=== PATIENT | female | born 1960 | race Caucasian/White ===

== ENCOUNTER 2016-12-12 11:06 | Emergency (ER) | payer OTHER ==
[2016-12-12] MEDS ORDERED: LIDOCAINE 1% MDV 20ML VIAL As Ordered ONE (12:25)
--- NOTE | 2016-12-12 12:47 | REP ---
RIGHT BUTTOCK ULTRASOUND: Real-time sonographic evaluation of the right buttock soft tissues performed at a site of swelling and redness. There does appear to be a somewhat complex fluid collection in these soft tissues measuring 4.4 x 2.1 x 2.8 cm. This may represent an abscess. Signed by Siddhartha Butler MD 12/12/2016 05:04 P
--- NOTE | 2016-12-12 13:07 | EDDOCDS ---
Physician Documentation [facility] Name: Ashley Monge Age: 56 yrs Sex: Female : 1960 Arrival Date: 12/12/2016 Time: 11:06 Bed PD Private MD: Other - Complete Info On Cds Disposition: 12/12/16 12:54 Discharged to Home/Self Care. Impression: Cutaneous abscess of buttock, Acute bronchitis. - Condition is Stable. - Discharge Instructions: Abscess, Acute Bronchitis, Incision and Drainage, Dressing Change. - Prescriptions for Doxycycline Monohydrate 100 mg Oral Tablet - take 1 tablet by ORAL route every 12 hours for 10 days; 20 tablet. Mucinex 600 mg - take 1 tablet by ORAL route 2 times per day; 30 tablet. benzonatate 200 mg Oral Capsule - take 1 capsule by ORAL route 3 times per day As needed; 30 capsule. - Medication Reconciliation, Local Pharmacy Hours, Work Release Form - 1 day form. - Follow up: [facility]; When: 2 - 3 days; Reason: Recheck today's complaints. Follow up: Emergency Department; When: As needed; Reason: Fever > 102F, Worsening of conditions. - Problem is new. - Symptoms have improved. - Notes: call to make follow up appointment Historical: - Allergies: moxifloxacin; - Home Meds: 1. oxybutynin chloride 5 mg Oral tr24 1 tab once daily 2. Spiriva with HandiHaler 18 mcg Inhl CpDv 1 cap once daily 3. Symbicort 160-4.5 mcg/actuation inhalation HFAA 2 puffs 2 times per day - PMHx: bladder spasm; Emphysema; Ebenezer's Disease; - PSHx: Tubal ligation; Tonsillectomy; Cholecystectomy; - Social history: Smoking status: Patient uses tobacco products, heavy tobacco smoker. No barriers to communication noted, The patient speaks fluent Senegalese, Speaks appropriately for age. - Family history: Not pertinent. - : The pt / caregiver states he / she is not on anticoagulants. Home medication list is obtained from the patient. - Exposure Risk Screening:: None identified. Vital Signs: 12/12 11:09 BP 147 / 77 RA Sitting (auto/reg); Pulse 88; Resp 18; Temp 99.1(O); Pulse Ox 95% on jrd R/A; Weight 99.79 kg / 220 lbs (R); Height 5 ft. 6 in. (167.64 cm) (R); Pain 10/10; 13:05 BP 131 / 64 LA Sitting (auto/lg); Pulse 81; Resp 22; Temp 98.3(O); Pulse Ox 95% on R/A; ar3 Pain 0/10; 11:09 Body Mass Index 35.51 (99.79 kg, 167.64 cm) jrd MDM: 11:46 EXTREMITY NON VASCUL LIMITED Ordered. EDMS 12:20 Financial registration complete. lg 12:20 Lidocaine 10 mg/mL (1 %) 10 ml Infiltration once; to bedside ordered. ar2 13:02 Wound Culture & GS - All Other Sources Ordered. EDMS Administered Medications: 12:26 Drug: Lidocaine 10 ml [lidocaine 10 mg/mL (1 %) injection solution (10 mL)] {Note: ml6 administered by PA.} Route: Infiltration; Signatures: Dispatcher [employer] EDMS Vijay Olea, Jt Reg Saul Fontaine PA-C PADhaval ar2 Ammy Epstein, RN RN hs1 Natalee Zaragoza,DAWIT RN js13 Andrade Beltre RN ml6 The chart was reviewed and I authenticate all verbal orders and agree with the evaluation and treatment provided.Corrections: (The following items were deleted from the chart) 11:46 11:42 Abdomen, limited+US ordered. EDMS EDMS MTDD
--- NOTE | 2016-12-12 13:07 | EDDOCDS ---
Nurse's Notes [facility] Name: Ashley Monge Age: 56 yrs Sex: Female : 1960 Arrival Date: 12/12/2016 Time: 11:06 Bed PD Private MD: Other - Complete Info On Cds Diagnosis: Cutaneous abscess of buttock;Acute bronchitis Presentation: 12/12 11:18 Presenting complaint: Patient states: I have bronchitis and a sinus infection and [facility] have the virus that is going around. I am here because I have a giant boil on my butt that they couldn't do anything about. Patient states trying to drain it at home and unsuccessful. Adult Sepsis Screening: The patient does not have new or worsening altered mentation. Patient's respiratory rate is less than 22. Systolic blood pressure is greater than 100. Patient has a qSOFA score of 0- Negative Sepsis Screen. Suicide/Homicide risk assessment- the patient denies having any suicidal and/or homicidal ideations and does not present with any other emotional, behavioral or mental health complaints. Status: Patient is not a production service manager or dependent. Transition of care: patient was not received from another setting of care. 11:18 Acuity: LUÍS Level 4 hs1 11:18 Method Of Arrival: Walkin/Carried/Asstd hs1 Triage Assessment: 11:25 General: Appears uncomfortable, Behavior is appropriate for age, cooperative. Pain: hs1 Location: buttocks Pain currently is 10 out of 10 on a pain scale. HIV screening NA for this visit Offered previously. Neurological: No deficits noted. Respiratory: Airway is patent Respiratory effort is even, unlabored, Respiratory pattern is regular, symmetrical. Derm: Skin is pink, warm & dry. normal. Historical: - Allergies: moxifloxacin; - Home Meds: 1. oxybutynin chloride 5 mg Oral tr24 1 tab once daily 2. Spiriva with HandiHaler 18 mcg Inhl CpDv 1 cap once daily 3. Symbicort 160-4.5 mcg/actuation inhalation HFAA 2 puffs 2 times per day - PMHx: bladder spasm; Emphysema; Ebenezer's Disease; - PSHx: Tubal ligation; Tonsillectomy; Cholecystectomy; - Social history: Smoking status: Patient uses tobacco products, heavy tobacco smoker. No barriers to communication noted, The patient speaks fluent Bhutanese, Speaks appropriately for age. - Family history: Not pertinent. - : The pt / caregiver states he / she is not on anticoagulants. Home medication list is obtained from the patient. - Exposure Risk Screening:: None identified. Screenin:01 Screening information is obtained from the patient. Fall risk: No risks identified. js13 Assistance ADL's: requires no assistance with activities of daily living. Abuse/DV Screen: The patient / caregiver reports he/she is: not in a situation that causes fear, pain or injury. Nutritional screening: No deficits noted. Advance Directives: There is no active DNR order. home support is adequate. Assessment: 13:01 General: Appears in no apparent distress, Behavior is appropriate for age, cooperative. js13 Pain: Location: buttocks. Neurological: Level of Consciousness is awake, alert. Respiratory: Airway is patent Respiratory effort is even, unlabored, Respiratory pattern is regular, symmetrical. Derm: Skin is pink, warm & dry. Vital Signs: 11:09 BP 147 / 77 RA Sitting (auto/reg); Pulse 88; Resp 18; Temp 99.1(O); Pulse Ox 95% on jrd R/A; Weight 99.79 kg (R); Height 5 ft. 6 in. (167.64 cm) (R); Pain 10/10; 13:05 BP 131 / 64 LA Sitting (auto/lg); Pulse 81; Resp 22; Temp 98.3(O); Pulse Ox 95% on R/A; ar3 Pain 0/10; 11:09 Body Mass Index 35.51 (99.79 kg, 167.64 cm) [facility] Vitals: 11:09 Log In Time: December 12, 2016 at 10:55. [facility] ED Course: 11:09 Patient visited by Shyam Kraft PCA. jrd 11:09 Other - Complete Info On Cds is Private Physician. jrd 11:09 Patient moved to Waiting jrd 11:11 Patient visited by Shyam Kraft PCA. jrd 11:11 Patient moved to Pre RCE jrd 11:21 Triage Initiated hs1 11:26 Patient moved to Triage 1 hs1 11:33 Saul Fontaine PA-C is PHCP. ar2 11:33 Ad Dey MD is Attending Physician. ar2 11:33 Patient visited by Saul Fontaine PA-C. ar2 11:43 Patient moved to TR1 ar3 12:06 Patient moved to Ultrasound ar3 12:11 Patient moved to TR1 ar3 12:21 Patient moved to PD2 / 27 ar3 12:25 Patient visited by Andrade Beltre RN. ml6 12:52 [facility] is Referral Physician. ar2 12:58 EXTREMITY NON VASCUL LIMITED Returned. EDMS 13:01 The patient / caregiver is instructed regarding the plan of care and ED course. js13 13:01 No IV's were initiated during this patient's visit. No procedures done that require js13 assistance. Wound care to cyst located on right gluteus riki was dressed with 4X4s. 13:03 Wound Culture & GS - All Other Sources Sent. ar3 13:05 Patient visited by Mary Zheng PCA. ar3 Administered Medications: 12:26 Drug: Lidocaine 10 ml [lidocaine 10 mg/mL (1 %) injection solution (10 mL)] {Note: ml6 administered by EVA.} Route: Infiltration; Order Results: Radiology Order: EXTREMITY NON VASCUL LIMITED Test: EXTREMITY NON VASCUL LIMITED REASON FOR EXAMINATION: right buttock r/o abscess; ; RIGHT BUTTOCK ULTRASOUND:; ; Real-time sonographic evaluation of the right buttock soft tissues performed at a; site of swelling and redness. There does appear to be a somewhat complex fluid; collection in these soft tissues measuring 4.4 x 2.1 x 2.8 cm. This may; represent an abscess.; ; ; ; Unreviewed; Outcome: 12:54 Discharge ordered by Provider. ar2 13:01 Discharge Assessment: Patient awake, alert and oriented x 3. No cognitive and/or js13 functional deficits noted. Patient verbalized understanding of disposition instructions. patient administered narcotics - no. The following High Risk Discharge criteria are identified: None. Discharged to home ambulatory. Condition: good Condition: stable. Discharge instructions given to patient, Instructed on discharge instructions, follow up and referral plans. medication usage, wound care, Demonstrated understanding of instructions, medications, Pt was receptive of discharge instructions/ teaching. Prescriptions given X 3, Work note provided to patient. No special radiology studies were completed. Property :Personal belongings accompany Pt. 13:06 Patient left the ED. js13 Signatures: Dispatcher [employer] Saul Melendez, DIANA PAEdilbertoC ar2 Andrade Beltre, RN RN ml6 Mary Zheng, SCHEDULING ADMINISTRATOR SCHEDULING ADMINISTRATOR ar3 Ammy Epstein, DAWIT RN hs1 Natalee Zaragoza RN RN js13 Shyam Kraft, SCHEDULING ADMINISTRATOR SCHEDULING ADMINISTRATOR jrd MTDD
--- NOTE | 2016-12-14 14:07 | EDDOCDS ---
Physician Documentation [facility] Name: Ashley Monge Age: 56 yrs Sex: Female : 1960 Arrival Date: 12/12/2016 Time: 11:06 Bed PD Private MD: Other - Complete Info On Cds Disposition: 12/12/16 12:54 Discharged to Home/Self Care. Impression: Cutaneous abscess of buttock, Acute bronchitis. - Condition is Stable. - Discharge Instructions: Abscess, Acute Bronchitis, Incision and Drainage, Dressing Change. - Prescriptions for Doxycycline Monohydrate 100 mg Oral Tablet - take 1 tablet by ORAL route every 12 hours for 10 days; 20 tablet. Mucinex 600 mg - take 1 tablet by ORAL route 2 times per day; 30 tablet. benzonatate 200 mg Oral Capsule - take 1 capsule by ORAL route 3 times per day As needed; 30 capsule. - Medication Reconciliation, Local Pharmacy Hours, Work Release Form - 1 day form. - Follow up: [facility] [place]; When: 2 - 3 days; Reason: Recheck today's complaints. Follow up: Emergency Department; When: As needed; Reason: Fever > 102F, Worsening of conditions. - Problem is new. - Symptoms have improved. - Notes: call to make follow up appointment Historical: - Allergies: moxifloxacin; - Home Meds: 1. oxybutynin chloride 5 mg Oral tr24 1 tab once daily 2. Spiriva with HandiHaler 18 mcg Inhl CpDv 1 cap once daily 3. Symbicort 160-4.5 mcg/actuation inhalation HFAA 2 puffs 2 times per day - PMHx: bladder spasm; Emphysema; Ebenezer's Disease; - PSHx: Tubal ligation; Tonsillectomy; Cholecystectomy; - Social history: Smoking status: Patient uses tobacco products, heavy tobacco smoker. No barriers to communication noted, The patient speaks fluent Kosovan, Speaks appropriately for age. - Family history: Not pertinent. - : The pt / caregiver states he / she is not on anticoagulants. Home medication list is obtained from the patient. - Exposure Risk Screening:: None identified. Vital Signs: 12/12 11:09 BP 147 / 77 RA Sitting (auto/reg); Pulse 88; Resp 18; Temp 99.1(O); Pulse Ox 95% on jrd R/A; Weight 99.79 kg / 220 lbs (R); Height 5 ft. 6 in. (167.64 cm) (R); Pain 10/10; 13:05 BP 131 / 64 LA Sitting (auto/lg); Pulse 81; Resp 22; Temp 98.3(O); Pulse Ox 95% on R/A; ar3 Pain 0/10; 11:09 Body Mass Index 35.51 (99.79 kg, 167.64 cm) jrd MDM: 11:46 EXTREMITY NON VASCUL LIMITED Ordered. EDMS 12:20 Financial registration complete. lg 12:20 Lidocaine 10 mg/mL (1 %) 10 ml Infiltration once; to bedside ordered. ar2 13:02 Wound Culture & GS - All Other Sources Ordered. EDMS 13:10 [facility] [place] Agreement was scanned into [employer] and attached to record. lg 12/13 09:45 T-Sheet-- Draft Copy was scanned into [employer] and attached to record. gb 09:45 Radiology Report was scanned into [employer] and attached to record. gb Administered Medications: 12/12 12:26 Drug: Lidocaine 10 ml [lidocaine 10 mg/mL (1 %) injection solution (10 mL)] {Note: ml6 administered by PA.} Route: Infiltration; Signatures: Dispatcher [employer] EDMS Kelli Morrison, Reg Reg Vijay Stone, Reg Reg lg Saul Fontaine, PA-C PA-C ar2 Ammy Epstein RN RN hs1 Natalee Zaragoza RN RN js13 Andrade Beltre RN ml6 The chart was reviewed and I authenticate all verbal orders and agree with the evaluation and treatment provided.Corrections: (The following items were deleted from the chart) 11:46 11:42 Abdomen, limited+US ordered. EDMS EDMS Attachments: 13:10 [facility] Agreement lg 12/13 09:45 T-Sheet-- Draft Copy gb Chart Complete MTDD
--- NOTE | 2016-12-14 14:07 | EDDOCDS ---
Nurse's Notes [facility] Name: Ashley Monge Age: 56 yrs Sex: Female : 1960 Arrival Date: 12/12/2016 Time: 11:06 Bed PD Private MD: Other - Complete Info On Cds Diagnosis: Cutaneous abscess of buttock;Acute bronchitis Presentation: 12/12 11:18 Presenting complaint: Patient states: I have bronchitis and a sinus infection and [facility] have the virus that is going around. I am here because I have a giant boil on my butt that they couldn't do anything about. Patient states trying to drain it at home and unsuccessful. Adult Sepsis Screening: The patient does not have new or worsening altered mentation. Patient's respiratory rate is less than 22. Systolic blood pressure is greater than 100. Patient has a qSOFA score of 0- Negative Sepsis Screen. Suicide/Homicide risk assessment- the patient denies having any suicidal and/or homicidal ideations and does not present with any other emotional, behavioral or mental health complaints. Status: Patient is not a radiology services manager or dependent. Transition of care: patient was not received from another setting of care. 11:18 Acuity: LUÍS Level 4 hs1 11:18 Method Of Arrival: Walkin/Carried/Asstd hs1 Triage Assessment: 11:25 General: Appears uncomfortable, Behavior is appropriate for age, cooperative. Pain: hs1 Location: buttocks Pain currently is 10 out of 10 on a pain scale. HIV screening NA for this visit Offered previously. Neurological: No deficits noted. Respiratory: Airway is patent Respiratory effort is even, unlabored, Respiratory pattern is regular, symmetrical. Derm: Skin is pink, warm & dry. normal. Historical: - Allergies: moxifloxacin; - Home Meds: 1. oxybutynin chloride 5 mg Oral tr24 1 tab once daily 2. Spiriva with HandiHaler 18 mcg Inhl CpDv 1 cap once daily 3. Symbicort 160-4.5 mcg/actuation inhalation HFAA 2 puffs 2 times per day - PMHx: bladder spasm; Emphysema; Ebenezer's Disease; - PSHx: Tubal ligation; Tonsillectomy; Cholecystectomy; - Social history: Smoking status: Patient uses tobacco products, heavy tobacco smoker. No barriers to communication noted, The patient speaks fluent Zimbabwean, Speaks appropriately for age. - Family history: Not pertinent. - : The pt / caregiver states he / she is not on anticoagulants. Home medication list is obtained from the patient. - Exposure Risk Screening:: None identified. Screenin:01 Screening information is obtained from the patient. Fall risk: No risks identified. js13 Assistance ADL's: requires no assistance with activities of daily living. Abuse/DV Screen: The patient / caregiver reports he/she is: not in a situation that causes fear, pain or injury. Nutritional screening: No deficits noted. Advance Directives: There is no active DNR order. home support is adequate. Assessment: 13:01 General: Appears in no apparent distress, Behavior is appropriate for age, cooperative. js13 Pain: Location: buttocks. Neurological: Level of Consciousness is awake, alert. Respiratory: Airway is patent Respiratory effort is even, unlabored, Respiratory pattern is regular, symmetrical. Derm: Skin is pink, warm & dry. Vital Signs: 11:09 BP 147 / 77 RA Sitting (auto/reg); Pulse 88; Resp 18; Temp 99.1(O); Pulse Ox 95% on jrd R/A; Weight 99.79 kg (R); Height 5 ft. 6 in. (167.64 cm) (R); Pain 10/10; 13:05 BP 131 / 64 LA Sitting (auto/lg); Pulse 81; Resp 22; Temp 98.3(O); Pulse Ox 95% on R/A; ar3 Pain 0/10; 11:09 Body Mass Index 35.51 (99.79 kg, 167.64 cm) [facility] Vitals: 11:09 Log In Time: December 12, 2016 at 10:55. [facility] ED Course: 11:09 Patient visited by Shyam Kraft PCA. jrd 11:09 Other - Complete Info On Cds is Private Physician. jrd 11:09 Patient moved to Waiting jrd 11:11 Patient visited by Shyam Kraft PCA. jrd 11:11 Patient moved to Pre RCE jrd 11:21 Triage Initiated hs1 11:26 Patient moved to Triage 1 hs1 11:33 Saul Fontaine PA-C is PHCP. ar2 11:33 Ad Dey MD is Attending Physician. ar2 11:33 Patient visited by Saul Fontaine PA-C. ar2 11:43 Patient moved to TR1 ar3 12:06 Patient moved to Ultrasound ar3 12:11 Patient moved to TR1 ar3 12:21 Patient moved to PD2 ar3 12:25 Patient visited by Andrade Beltre RN. ml6 12:52 [facility] is Referral Physician. ar2 12:58 EXTREMITY NON VASCUL LIMITED Returned. EDMS 13:01 The patient / caregiver is instructed regarding the plan of care and ED course. js13 13:01 No IV's were initiated during this patient's visit. No procedures done that require js13 assistance. Wound care to cyst located on right gluteus riki was dressed with 4X4s. 13:03 Wound Culture & GS - All Other Sources Sent. ar3 13:05 Patient visited by Mary Zheng PCA. ar3 13:10 [facility] Payment Agreement was scanned into [employer] and attached to record. lg 12/13 09:45 T-Sheet-- Draft Copy was scanned into [employer] and attached to record. gb 09:45 Radiology Report was scanned into [employer] and attached to record. gb Administered Medications: 12/12 12:26 Drug: Lidocaine 10 ml [lidocaine 10 mg/mL (1 %) injection solution (10 mL)] {Note: ml6 administered by PA.} Route: Infiltration; Order Results: Lab Order: Wound Culture & GS - All Other Sources; SPEC'M 12/12/16 13:04 Test: GRAM STAIN; Value: GRAM STAIN RESULT; Status: F Test: GRAM STAIN; Value: MANY GRAM POSITIVE COCCI; Status: F Test: GRAM STAIN; Value: MODERATE GRAM POSITIVE RODS; Status: F Radiology Order: EXTREMITY NON VASCUL LIMITED Test: EXTREMITY NON VASCUL LIMITED REASON FOR EXAMINATION: right buttock r/o abscess; RIGHT BUTTOCK ULTRASOUND:; ; Real-time sonographic evaluation of the right buttock soft tissues performed at a; site of swelling and redness. There does appear to be a somewhat complex fluid; collection in these soft tissues measuring 4.4 x 2.1 x 2.8 cm. This may; represent an abscess.; ; ; Signed by; Siddhartha Butler MD 12/12/2016 05:04 P; Outcome: 12:54 Discharge ordered by Provider. ar2 13:01 Discharge Assessment: Patient awake, alert and oriented x 3. No cognitive and/or js13 functional deficits noted. Patient verbalized understanding of disposition instructions. patient administered narcotics - no. The following High Risk Discharge criteria are identified: None. Discharged to home ambulatory. Condition: good Condition: stable. Discharge instructions given to patient, Instructed on discharge instructions, follow up and referral plans. medication usage, wound care, Demonstrated understanding of instructions, medications, Pt was receptive of discharge instructions/ teaching. Prescriptions given X 3, Work note provided to patient. No special radiology studies were completed. Property :Personal belongings accompany Pt. 13:06 Patient left the ED. js13 Signatures: Dispatcher [employer] EDMS Kelli Morrison, Reg Reg gb Vijay Olea, Reg Reg lg Saul Fontaine, PA-C PA-C ar2 Andrade Beltre, RN RN ml6 Mary Zheng, GLASS EDGER GLASS EDGER ar3 Ammy Epstein RN RN 1 Natalee ZaragozaRN RN js13 Shyam Kraft, GLASS EDGER GLASS EDGER jrd Chart Complete GIRISH
--- NOTE | 2016-12-14 14:07 | EDDOCDS ---
Physician Documentation [facility] Name: Ashley Monge Age: 56 yrs Sex: Female : 1960 Arrival Date: 12/12/2016 Time: 11:06 Bed PD Private MD: Other - Complete Info On Cds Disposition: 12/12/16 12:54 Discharged to Home/Self Care. Impression: Cutaneous abscess of buttock, Acute bronchitis. - Condition is Stable. - Discharge Instructions: Abscess, Acute Bronchitis, Incision and Drainage, Dressing Change. - Prescriptions for Doxycycline Monohydrate 100 mg Oral Tablet - take 1 tablet by ORAL route every 12 hours for 10 days; 20 tablet. Mucinex 600 mg - take 1 tablet by ORAL route 2 times per day; 30 tablet. benzonatate 200 mg Oral Capsule - take 1 capsule by ORAL route 3 times per day As needed; 30 capsule. - Medication Reconciliation, Local Pharmacy Hours, Work Release Form - 1 day form. - Follow up: [facility]; When: 2 - 3 days; Reason: Recheck today's complaints. Follow up: Emergency Department; When: As needed; Reason: Fever > 102F, Worsening of conditions. - Problem is new. - Symptoms have improved. - Notes: call to make follow up appointment Historical: - Allergies: moxifloxacin; - Home Meds: 1. oxybutynin chloride 5 mg Oral tr24 1 tab once daily 2. Spiriva with HandiHaler 18 mcg Inhl CpDv 1 cap once daily 3. Symbicort 160-4.5 mcg/actuation inhalation HFAA 2 puffs 2 times per day - PMHx: bladder spasm; Emphysema; Ebenezer's Disease; - PSHx: Tubal ligation; Tonsillectomy; Cholecystectomy; - Social history: Smoking status: Patient uses tobacco products, heavy tobacco smoker. No barriers to communication noted, The patient speaks fluent Kuwaiti, Speaks appropriately for age. - Family history: Not pertinent. - : The pt / caregiver states he / she is not on anticoagulants. Home medication list is obtained from the patient. - Exposure Risk Screening:: None identified. Vital Signs: 12/12 11:09 BP 147 / 77 RA Sitting (auto/reg); Pulse 88; Resp 18; Temp 99.1(O); Pulse Ox 95% on jrd R/A; Weight 99.79 kg / 220 lbs (R); Height 5 ft. 6 in. (167.64 cm) (R); Pain 10/10; 13:05 BP 131 / 64 LA Sitting (auto/lg); Pulse 81; Resp 22; Temp 98.3(O); Pulse Ox 95% on R/A; ar3 Pain 0/10; 11:09 Body Mass Index 35.51 (99.79 kg, 167.64 cm) jrd MDM: 11:46 EXTREMITY NON VASCUL LIMITED Ordered. EDMS 12:20 Financial registration complete. lg 12:20 Lidocaine 10 mg/mL (1 %) 10 ml Infiltration once; to bedside ordered. ar2 13:02 Wound Culture & GS - All Other Sources Ordered. EDMS 13:10 [facility] [place] [facility] Payment Agreement was scanned into [employer] and attached to record. lg 12/13 09:45 T-Sheet-- Draft Copy was scanned into [employer] and attached to record. gb 09:45 Radiology Report was scanned into [employer] and attached to record. gb Administered Medications: 12/12 12:26 Drug: Lidocaine 10 ml [lidocaine 10 mg/mL (1 %) injection solution (10 mL)] {Note: ml6 administered by PA.} Route: Infiltration; Signatures: Dispatcher [employer] EDMS Kelli Morrison, Reg Reg Vijay Stone, Reg Reg lg Saul Fontaine, PA-C PA-C ar2 Ammy Epstein RN RN hs1 Natalee Zaragoza RN RN js13 Andrade Beltre RN ml6 The chart was reviewed and I authenticate all verbal orders and agree with the evaluation and treatment provided.Corrections: (The following items were deleted from the chart) 11:46 11:42 Abdomen, limited+US ordered. EDMS EDMS Attachments: 13:10 [facility] Payment Agreement lg 12/13 09:45 T-Sheet-- Draft Copy gb Chart Complete MTDD
--- NOTE | 2016-12-20 16:18 | EDDOCDS ---
Physician Documentation [facility] Name: Ashley Monge Age: 56 yrs Sex: Female : 1960 Arrival Date: 12/12/2016 Time: 11:06 Bed PD Private MD: Other - Complete Info On Cds Disposition: 12/12/16 12:54 Discharged to Home/Self Care. Impression: Cutaneous abscess of buttock, Acute bronchitis. - Condition is Stable. - Discharge Instructions: Abscess, Acute Bronchitis, Incision and Drainage, Dressing Change. - Prescriptions for Doxycycline Monohydrate 100 mg Oral Tablet - take 1 tablet by ORAL route every 12 hours for 10 days; 20 tablet. Mucinex 600 mg - take 1 tablet by ORAL route 2 times per day; 30 tablet. benzonatate 200 mg Oral Capsule - take 1 capsule by ORAL route 3 times per day As needed; 30 capsule. - Medication Reconciliation, Local Pharmacy Hours, Work Release Form - 1 day form. - Follow up: [facility]; When: 2 - 3 days; Reason: Recheck today's complaints. Follow up: Emergency Department; When: As needed; Reason: Fever > 102F, Worsening of conditions. - Problem is new. - Symptoms have improved. - Notes: call to make follow up appointment Historical: - Allergies: moxifloxacin; - Home Meds: 1. oxybutynin chloride 5 mg Oral tr24 1 tab once daily 2. Spiriva with HandiHaler 18 mcg Inhl CpDv 1 cap once daily 3. Symbicort 160-4.5 mcg/actuation inhalation HFAA 2 puffs 2 times per day - PMHx: bladder spasm; Emphysema; Ebenezer's Disease; - PSHx: Tubal ligation; Tonsillectomy; Cholecystectomy; - Social history: Smoking status: Patient uses tobacco products, heavy tobacco smoker. No barriers to communication noted, The patient speaks fluent Taiwanese, Speaks appropriately for age. - Family history: Not pertinent. - : The pt / caregiver states he / she is not on anticoagulants. Home medication list is obtained from the patient. - Exposure Risk Screening:: None identified. Vital Signs: 12/12 11:09 BP 147 / 77 RA Sitting (auto/reg); Pulse 88; Resp 18; Temp 99.1(O); Pulse Ox 95% on jrd R/A; Weight 99.79 kg / 220 lbs (R); Height 5 ft. 6 in. (167.64 cm) (R); Pain 10/10; 13:05 BP 131 / 64 LA Sitting (auto/lg); Pulse 81; Resp 22; Temp 98.3(O); Pulse Ox 95% on R/A; ar3 Pain 0/10; 11:09 Body Mass Index 35.51 (99.79 kg, 167.64 cm) jrd MDM: 11:46 EXTREMITY NON VASCUL LIMITED Ordered. EDMS 12:20 Financial registration complete. lg 12:20 Lidocaine 10 mg/mL (1 %) 10 ml Infiltration once; to bedside ordered. ar2 13:02 Wound Culture & GS - All Other Sources Ordered. EDMS 13:10 [facility] [place] Agreement was scanned into Enbridge and attached to record. lg 12/13 09:45 T-Sheet-- Draft Copy was scanned into Enbridge and attached to record. gb 09:45 Radiology Report was scanned into Enbridge and attached to record. gb Administered Medications: 12/12 12:26 Drug: Lidocaine 10 ml [lidocaine 10 mg/mL (1 %) injection solution (10 mL)] {Note: ml6 administered by PA.} Route: Infiltration; Signatures: Dispatcher MedHost EDMS Kelli Morrison, Reg Reg Vijay Stone, Reg Reg lg Saul Fontaine, PA-C PA-C ar2 Ammy Epstein RN RN hs1 Natalee Zaragoza RN RN js13 Andrade Beltre RN ml6 The chart was reviewed and I authenticate all verbal orders and agree with the evaluation and treatment provided.Corrections: (The following items were deleted from the chart) 11:46 11:42 Abdomen, limited+US ordered. EDMS EDMS Attachments: 13:10 [facility] [place] Agreement lg 12/13 09:45 T-Sheet-- Draft Copy gb MTDD
--- NOTE | 2016-12-20 16:18 | EDDOCDS ---
Physician Documentation [facility] Name: Ashley Monge Age: 56 yrs Sex: Female : 1960 Arrival Date: 12/12/2016 Time: 11:06 Bed PD Private MD: Other - Complete Info On Cds Disposition: 12/12/16 12:54 Discharged to Home/Self Care. Impression: Cutaneous abscess of buttock, Acute bronchitis. - Condition is Stable. - Discharge Instructions: Abscess, Acute Bronchitis, Incision and Drainage, Dressing Change. - Prescriptions for Doxycycline Monohydrate 100 mg Oral Tablet - take 1 tablet by ORAL route every 12 hours for 10 days; 20 tablet. Mucinex 600 mg - take 1 tablet by ORAL route 2 times per day; 30 tablet. benzonatate 200 mg Oral Capsule - take 1 capsule by ORAL route 3 times per day As needed; 30 capsule. - Medication Reconciliation, Local Pharmacy Hours, Work Release Form - 1 day form. - Follow up: [facility]; When: 2 - 3 days; Reason: Recheck today's complaints. Follow up: Emergency Department; When: As needed; Reason: Fever > 102F, Worsening of conditions. - Problem is new. - Symptoms have improved. - Notes: call to make follow up appointment Historical: - Allergies: moxifloxacin; - Home Meds: 1. oxybutynin chloride 5 mg Oral tr24 1 tab once daily 2. Spiriva with HandiHaler 18 mcg Inhl CpDv 1 cap once daily 3. Symbicort 160-4.5 mcg/actuation inhalation HFAA 2 puffs 2 times per day - PMHx: bladder spasm; Emphysema; Ebenezer's Disease; - PSHx: Tubal ligation; Tonsillectomy; Cholecystectomy; - Social history: Smoking status: Patient uses tobacco products, heavy tobacco smoker. No barriers to communication noted, The patient speaks fluent [place], Speaks appropriately for age. - Family history: Not pertinent. - : The pt / caregiver states he / she is not on anticoagulants. Home medication list is obtained from the patient. - Exposure Risk Screening:: None identified. Vital Signs: 12/12 11:09 BP 147 / 77 RA Sitting (auto/reg); Pulse 88; Resp 18; Temp 99.1(O); Pulse Ox 95% on jrd R/A; Weight 99.79 kg / 220 lbs (R); Height 5 ft. 6 in. (167.64 cm) (R); Pain 10/10; 13:05 BP 131 / 64 LA Sitting (auto/lg); Pulse 81; Resp 22; Temp 98.3(O); Pulse Ox 95% on R/A; ar3 Pain 0/10; 11:09 Body Mass Index 35.51 (99.79 kg, 167.64 cm) jrd MDM: 11:46 EXTREMITY NON VASCUL LIMITED Ordered. EDMS 12:20 Financial registration complete. lg 12:20 Lidocaine 10 mg/mL (1 %) 10 ml Infiltration once; to bedside ordered. ar2 13:02 Wound Culture & GS - All Other Sources Ordered. EDMS 13:10 [facility] [place] Agreement was scanned into QuantumSphere and attached to record. lg 12/13 09:45 T-Sheet-- Draft Copy was scanned into QuantumSphere and attached to record. gb 09:45 Radiology Report was scanned into QuantumSphere and attached to record. gb Administered Medications: 12/12 12:26 Drug: Lidocaine 10 ml [lidocaine 10 mg/mL (1 %) injection solution (10 mL)] {Note: ml6 administered by PA.} Route: Infiltration; Signatures: Dispatcher MedHost EDMS Kelli Morrison, Reg Reg Viajy Stone, Reg Reg lg Saul Fnotaine, PA-C PA-C ar2 Ammy Epstein RN RN hs1 Natalee Zaragoza RN RN js13 Andrade Beltre RN ml6 The chart was reviewed and I authenticate all verbal orders and agree with the evaluation and treatment provided.Corrections: (The following items were deleted from the chart) 11:46 11:42 Abdomen, limited+US ordered. EDMS EDMS Attachments: 13:10 [facility] Payment Agreement lg 12/13 09:45 T-Sheet-- Draft Copy gb MTDD
--- NOTE | 2016-12-20 16:18 | EDDOCDS ---
Nurse's Notes [facility] Name: Ashley Monge Age: 56 yrs Sex: Female : 1960 Arrival Date: 12/12/2016 Time: 11:06 Bed PD Private MD: Other - Complete Info On Cds Diagnosis: Cutaneous abscess of buttock;Acute bronchitis Presentation: 12/12 11:18 Presenting complaint: Patient states: I have bronchitis and a sinus infection [facility] that is going around. I am here because I have a giant boil on my butt that they couldn't do anything about. Patient states trying to drain it at home and unsuccessful. Adult Sepsis Screening: The patient does not have new or worsening altered mentation. Patient's respiratory rate is less than 22. Systolic blood pressure is greater than 100. Patient has a qSOFA score of 0- Negative Sepsis Screen. Suicide/Homicide risk assessment- the patient denies having any suicidal and/or homicidal ideations and does not present with any other emotional, behavioral or mental health complaints. Status: Patient is not a general service technician or dependent. Transition of care: patient was not received from another setting of care. 11:18 Acuity: LUÍS Level 4 hs1 11:18 Method Of Arrival: Walkin/Carried/Asstd hs1 Triage Assessment: 11:25 General: Appears uncomfortable, Behavior is appropriate for age, cooperative. Pain: hs1 Location: buttocks Pain currently is 10 out of 10 on a pain scale. HIV screening NA for this visit Offered previously. Neurological: No deficits noted. Respiratory: Airway is patent Respiratory effort is even, unlabored, Respiratory pattern is regular, symmetrical. Derm: Skin is pink, warm & dry. normal. Historical: - Allergies: moxifloxacin; - Home Meds: 1. oxybutynin chloride 5 mg Oral tr24 1 tab once daily 2. Spiriva with HandiHaler 18 mcg Inhl CpDv 1 cap once daily 3. Symbicort 160-4.5 mcg/actuation inhalation HFAA 2 puffs 2 times per day - PMHx: bladder spasm; Emphysema; Ebenezer's Disease; - PSHx: Tubal ligation; Tonsillectomy; Cholecystectomy; - Social history: Smoking status: Patient uses tobacco products, heavy tobacco smoker. No barriers to communication noted, The patient speaks fluent Bulgarian, Speaks appropriately for age. - Family history: Not pertinent. - : The pt / caregiver states he / she is not on anticoagulants. Home medication list is obtained from the patient. - Exposure Risk Screening:: None identified. Screenin:01 Screening information is obtained from the patient. Fall risk: No risks identified. js13 Assistance ADL's: requires no assistance with activities of daily living. Abuse/DV Screen: The patient / caregiver reports he/she is: not in a situation that causes fear, pain or injury. Nutritional screening: No deficits noted. Advance Directives: There is no active DNR order. home support is adequate. Assessment: 13:01 General: Appears in no apparent distress, Behavior is appropriate for age, cooperative. js13 Pain: Location: buttocks. Neurological: Level of Consciousness is awake, alert. Respiratory: Airway is patent Respiratory effort is even, unlabored, Respiratory pattern is regular, symmetrical. Derm: Skin is pink, warm & dry. Vital Signs: 11:09 BP 147 / 77 RA Sitting (auto/reg); Pulse 88; Resp 18; Temp 99.1(O); Pulse Ox 95% on jrd R/A; Weight 99.79 kg (R); Height 5 ft. 6 in. (167.64 cm) (R); Pain 10/10; 13:05 BP 131 / 64 LA Sitting (auto/lg); Pulse 81; Resp 22; Temp 98.3(O); Pulse Ox 95% on R/A; ar3 Pain 0/10; 11:09 Body Mass Index 35.51 (99.79 kg, 167.64 cm) [facility] Vitals: 11:09 Log In Time: December 12, 2016 at 10:55. [facility] ED Course: 11:09 Patient visited by Shyam Kraft PCA. jrd 11:09 Other - Complete Info On Cds is Private Physician. jrd 11:09 Patient moved to Waiting jrd 11:11 Patient visited by Shyam Kraft PCA. jrd 11:11 Patient moved to Pre RCE jrd 11:21 Triage Initiated hs1 11:26 Patient moved to Triage 1 hs1 11:33 Saul Fontaine PA-C is PHCP. ar2 11:33 Ad Dey MD is Attending Physician. ar2 11:33 Patient visited by Saul Fontaine PA-C. ar2 11:43 Patient moved to TR1 ar3 12:06 Patient moved to Ultrasound ar3 12:11 Patient moved to TR1 ar3 12:21 Patient moved to PD2 / ar3 12:25 Patient visited by Andrade Beltre RN. ml6 12:52 [facility] is Referral Physician. ar2 12:58 EXTREMITY NON VASCUL LIMITED Returned. EDMS 13:01 The patient / caregiver is instructed regarding the plan of care and ED course. js13 13:01 No IV's were initiated during this patient's visit. No procedures done that require js13 assistance. Wound care to cyst located on right gluteus riki was dressed with 4X4s. 13:03 Wound Culture & GS - All Other Sources Sent. ar3 13:05 Patient visited by Mary Zheng PCA. ar3 13:10 [facility] Payment Agreement was scanned into SoCAT and attached to record. lg 12/13 09:45 T-Sheet-- Draft Copy was scanned into SoCAT and attached to record. gb 09:45 Radiology Report was scanned into SoCAT and attached to record. gb Administered Medications: 12/12 12:26 Drug: Lidocaine 10 ml [lidocaine 10 mg/mL (1 %) injection solution (10 mL)] {Note: ml6 administered by PA.} Route: Infiltration; Order Results: Lab Order: Wound Culture & GS - All Other Sources; SPEC'M 12/12/16 13:04 Test: GRAM STAIN; Value: GRAM STAIN RESULT; Status: F Test: GRAM STAIN; Value: MANY GRAM POSITIVE COCCI; Status: F Test: GRAM STAIN; Value: MODERATE GRAM POSITIVE RODS; Status: F Test: WOUND CULTURE; Value: <EXTERNAL COMMENT eCWMed> FULL REPORT IN LAB NOTES (eCW and Medent).; Status: F Test: WOUND CULTURE; Value: ORGANISM 1: ORGANISM SAME PREVIOUS ISOLATE; Status: F Test: WOUND CULTURE; Value: ORGANISM SAME PREVIOUS ISOLATE; Status: F Test: WOUND CULTURE; Value: QUANTITY OF GROWTH FEW; Status: F Test: WOUND CULTURE; Value: CORYNEBACTERIUM SPECIES; Status: F Test: WOUND CULTURE; Value: Corynebacterium LINE 4 Many species of Coryneform bacteria are part of the; Status: F Test: WOUND CULTURE; Value: Corynebacterium LINE 5 normal khurram of the skin and mucous membranes in; Status: F Test: WOUND CULTURE; Value: Corynebacterium LINE 6 humans. Repeated isolation or a coryneform bacterium; Status: F Test: WOUND CULTURE; Value: Corynebacterium LINE 7 growing in pure culture may require consultation with; Status: F Test: WOUND CULTURE; Value: Corynebacterium LINE 8 an infectious disease specialist. There are currently; Status: F Test: WOUND CULTURE; Value: Corynebacterium LINE 9 no susceptibility standards for these organisms.; Status: F Test: WOUND CULTURE; Value: QUANTITY OF GROWTH FEW; Status: F Test: WOUND CULTURE; Value: SAME AEROBIC ISOLATE; Status: F Test: WOUND CULTURE; Value: QUANTITY OF GROWTH FEW; Status: F Test: WOUND CULTURE; Value: ANAEROBIC COCCI; Status: F Test: WOUND CULTURE; Value: QUANTITY OF GROWTH FEW; Status: F Test: WOUND CULTURE; Value: ACTINOMYCES MEYERI; Status: F Test: WOUND CULTURE; Value: QUANTITY OF GROWTH FEW; Status: F Test: WOUND CULTURE; Value: ORGANISM 2: CORYNEBACTERIUM SPECIES; Status: F Test: WOUND CULTURE; Value: ORGANISM SAME PREVIOUS ISOLATE; Status: F Test: WOUND CULTURE; Value: QUANTITY OF GROWTH FEW; Status: F Test: WOUND CULTURE; Value: CORYNEBACTERIUM SPECIES; Status: F Test: WOUND CULTURE; Value: Corynebacterium LINE 4 Many species of Coryneform bacteria are part of the; Status: F Test: WOUND CULTURE; Value: Corynebacterium LINE 5 normal kh[place] of the skin and mucous membranes in; Status: F Test: WOUND CULTURE; Value: Corynebacterium LINE 6 humans. Repeated isolation or a coryneform bacterium; Status: F Test: WOUND CULTURE; Value: Corynebacterium LINE 7 growing in pure culture may require consultation with; Status: F Test: WOUND CULTURE; Value: Corynebacterium LINE 8 an infectious disease specialist. There are currently; Status: F Test: WOUND CULTURE; Value: Corynebacterium LINE 9 no susceptibility standards for these organisms.; Status: F Test: WOUND CULTURE; Value: QUANTITY OF GROWTH FEW; Status: F Test: WOUND CULTURE; Value: SAME AEROBIC ISOLATE; Status: F Test: WOUND CULTURE; Value: QUANTITY OF GROWTH FEW; Status: F Test: WOUND CULTURE; Value: ANAEROBIC COCCI; Status: F Test: WOUND CULTURE; Value: QUANTITY OF GROWTH FEW; Status: F Test: WOUND CULTURE; Value: ACTINOMYCES MEYERI; Status: F Test: WOUND CULTURE; Value: QUANTITY OF GROWTH FEW; Status: F Test: WOUND CULTURE; Value: ORGANISM 3: SAME AEROBIC ISOLATE; Status: F Test: WOUND CULTURE; Value: ORGANISM SAME PREVIOUS ISOLATE; Status: F Test: WOUND CULTURE; Value: QUANTITY OF GROWTH FEW; Status: F Test: WOUND CULTURE; Value: CORYNEBACTERIUM SPECIES; Status: F Test: WOUND CULTURE; Value: Corynebacterium LINE 4 Many species of Coryneform bacteria are part of the; Status: F Test: WOUND CULTURE; Value: Corynebacterium LINE 5 normal khur[place] of the skin and mucous membranes in; Status: F Test: WOUND CULTURE; Value: Corynebacterium LINE 6 humans. Repeated isolation or a coryneform bacterium; Status: F Test: WOUND CULTURE; Value: Corynebacterium LINE 7 growing in pure culture may require consultation with; Status: F Test: WOUND CULTURE; Value: Corynebacterium LINE 8 an infectious disease specialist. There are currently; Status: F Test: WOUND CULTURE; Value: Corynebacterium LINE 9 no susceptibility standards for these organisms.; Status: F Test: WOUND CULTURE; Value: QUANTITY OF GROWTH FEW; Status: F Test: WOUND CULTURE; Value: SAME AEROBIC ISOLATE; Status: F Test: WOUND CULTURE; Value: QUANTITY OF GROWTH FEW; Status: F Test: WOUND CULTURE; Value: ANAEROBIC COCCI; Status: F Test: WOUND CULTURE; Value: QUANTITY OF GROWTH FEW; Status: F Test: WOUND CULTURE; Value: ACTINOMYCES MEYERI; Status: F Test: WOUND CULTURE; Value: QUANTITY OF GROWTH FEW; Status: F Test: WOUND CULTURE; Value: ORGANISM 4: ANAEROBIC COCCI; Status: F Test: WOUND CULTURE; Value: ORGANISM SAME PREVIOUS ISOLATE; Status: F Test: WOUND CULTURE; Value: QUANTITY OF GROWTH FEW; Status: F Test: WOUND CULTURE; Value: CORYNEBACTERIUM SPECIES; Status: F Test: WOUND CULTURE; Value: Corynebacterium LINE 4 Many species of Coryneform bacteria are part of the; Status: F Test: WOUND CULTURE; Value: Corynebacterium LINE 5 normal khur[place] of the skin and mucous membranes in; Status: F Test: WOUND CULTURE; Value: Corynebacterium LINE 6 humans. Repeated isolation or a coryneform bacterium; Status: F Test: WOUND CULTURE; Value: Corynebacterium LINE 7 growing in pure culture may require consultation with; Status: F Test: WOUND CULTURE; Value: Corynebacterium LINE 8 an infectious disease specialist. There are currently; Status: F Test: WOUND CULTURE; Value: Corynebacterium LINE 9 no susceptibility standards for these organisms.; Status: F Test: WOUND CULTURE; Value: QUANTITY OF GROWTH FEW; Status: F Test: WOUND CULTURE; Value: SAME AEROBIC ISOLATE; Status: F Test: WOUND CULTURE; Value: QUANTITY OF GROWTH FEW; Status: F Test: WOUND CULTURE; Value: ANAEROBIC COCCI; Status: F Test: WOUND CULTURE; Value: QUANTITY OF GROWTH FEW; Status: F Test: WOUND CULTURE; Value: ACTINOMYCES MEYERI; Status: F Test: WOUND CULTURE; Value: QUANTITY OF GROWTH FEW; Status: F Test: WOUND CULTURE; Value: ORGANISM 5: ACTINOMYCES MEYERI; Status: F Test: WOUND CULTURE; Value: ORGANISM SAME PREVIOUS ISOLATE; Status: F Test: WOUND CULTURE; Value: QUANTITY OF GROWTH FEW; Status: F Test: WOUND CULTURE; Value: CORYNEBACTERIUM SPECIES; Status: F Test: WOUND CULTURE; Value: Corynebacterium LINE 4 Many species of Coryneform bacteria are part of the; Status: F Test: WOUND CULTURE; Value: Corynebacterium LINE 5 normal kh[place] of the skin and mucous membranes in; Status: F Test: WOUND CULTURE; Value: Corynebacterium LINE 6 humans. Repeated isolation or a coryneform bacterium; Status: F Test: WOUND CULTURE; Value: Corynebacterium LINE 7 growing in pure culture may require consultation with; Status: F Test: WOUND CULTURE; Value: Corynebacterium LINE 8 an infectious disease specialist. There are currently; Status: F Test: WOUND CULTURE; Value: Corynebacterium LINE 9 no susceptibility standards for these organisms.; Status: F Test: WOUND CULTURE; Value: QUANTITY OF GROWTH FEW; Status: F Test: WOUND CULTURE; Value: SAME AEROBIC ISOLATE; Status: F Test: WOUND CULTURE; Value: QUANTITY OF GROWTH FEW; Status: F Test: WOUND CULTURE; Value: ANAEROBIC COCCI; Status: F Test: WOUND CULTURE; Value: QUANTITY OF GROWTH FEW; Status: F Test: WOUND CULTURE; Value: ACTINOMYCES MEYERI; Status: F Test: WOUND CULTURE; Value: QUANTITY OF GROWTH FEW; Status: F Radiology Order: EXTREMITY NON VASCUL LIMITED Test: EXTREMITY NON VASCUL LIMITED REASON FOR EXAMINATION: right buttock r/o abscess; RIGHT BUTTOCK ULTRASOUND:; ; Real-time sonographic evaluation of the right buttock soft tissues performed at a; site of swelling and redness. There does appear to be a somewhat complex fluid; collection in these soft tissues measuring 4.4 x 2.1 x 2.8 cm. This may; represent an abscess.; ; ; Signed by; Siddhartha Butler MD 12/12/2016 05:04 P; Outcome: 12:54 Discharge ordered by Provider. ar2 13:01 Discharge Assessment: Patient awake, alert and oriented x 3. No cognitive and/or js13 functional deficits noted. Patient verbalized understanding of disposition instructions. patient administered narcotics - no. The following High Risk Discharge criteria are identified: None. Discharged to home ambulatory. Condition: good Condition: stable. Discharge instructions given to patient, Instructed on discharge instructions, follow up and referral plans. medication usage, wound care, Demonstrated understanding of instructions, medications, Pt was receptive of discharge instructions/ teaching. Prescriptions given X 3, Work note provided to patient. No special radiology studies were completed. Property :Personal belongings accompany Pt. 13:06 Patient left the ED. js13 Addendum: 12/20/2016 16:15 Narrative: Wound culture results reviewed with Ronda Schreiber NP and no change in treatment kcs needed. Signatures: Dispatcher MedHost EDMS tSaci Mendez, RN RN kcs Kelli Morrison, Reg Reg gb Vijay Olea, Reg Reg lg Saul Fontaine, PA-C PA-C ar2 Andrade Beltre RN RN ml6 Mary Zheng, EDGING MACHINE FEEDER EDGING MACHINE FEEDER ar3 Ammy Epstein RN RN 1 Natalee Zaragoza RN RN js13 Abena, Shyam, EDGING MACHINE FEEDER EDGING MACHINE FEEDER jrd TESFAYED
--- NOTE | 2016-12-20 16:19 | EDDOCDS ---
[facility] Name: Ashley Monge Age: 56 yrs Sex: Female : 1960 Arrival Date: 12/12/2016 Time: 11:06 Bed PD Private MD: Other - Complete Info On Cds Diagnosis: Cutaneous abscess of buttock;Acute bronchitis Presentation: 12/12 11:18 Presenting complaint: Patient states: I have bronchitis and a sinus infection [facility] have the virus that is going around. I am here because I have a giant boil on my butt that they couldn't do anything about. Patient states trying to drain it at home and unsuccessful. Adult Sepsis Screening: The patient does not have new or worsening altered mentation. Patient's respiratory rate is less than 22. Systolic blood pressure is greater than 100. Patient has a qSOFA score of 0- Negative Sepsis Screen. Suicide/Homicide risk assessment- the patient denies having any suicidal and/or homicidal ideations and does not present with any other emotional, behavioral or mental health complaints. Status: Patient is not a family service center director or dependent. Transition of care: patient was not received from another setting of care. 11:18 Acuity: LUÍS Level 4 hs1 11:18 Method Of Arrival: Walkin/Carried/Asstd hs1 Triage Assessment: 11:25 General: Appears uncomfortable, Behavior is appropriate for age, cooperative. Pain: hs1 Location: buttocks Pain currently is 10 out of 10 on a pain scale. HIV screening NA for this visit Offered previously. Neurological: No deficits noted. Respiratory: Airway is patent Respiratory effort is even, unlabored, Respiratory pattern is regular, symmetrical. Derm: Skin is pink, warm & dry. normal. Historical: - Allergies: moxifloxacin; - Home Meds: 1. oxybutynin chloride 5 mg Oral tr24 1 tab once daily 2. Spiriva with HandiHaler 18 mcg Inhl CpDv 1 cap once daily 3. Symbicort 160-4.5 mcg/actuation inhalation HFAA 2 puffs 2 times per day - PMHx: bladder spasm; Emphysema; Ebenezer's Disease; - PSHx: Tubal ligation; Tonsillectomy; Cholecystectomy; - Social history: Smoking status: Patient uses tobacco products, heavy tobacco smoker. No barriers to communication noted, The patient speaks fluent Cymro, Speaks appropriately for age. - Family history: Not pertinent. - : The pt / caregiver states he / she is not on anticoagulants. Home medication list is obtained from the patient. - Exposure Risk Screening:: None identified. Screenin:01 Screening information is obtained from the patient. Fall risk: No risks identified. js13 Assistance ADL's: requires no assistance with activities of daily living. Abuse/DV Screen: The patient / caregiver reports he/she is: not in a situation that causes fear, pain or injury. Nutritional screening: No deficits noted. Advance Directives: There is no active DNR order. home support is adequate. Assessment: 13:01 General: Appears in no apparent distress, Behavior is appropriate for age, cooperative. js13 Pain: Location: buttocks. Neurological: Level of Consciousness is awake, alert. Respiratory: Airway is patent Respiratory effort is even, unlabored, Respiratory pattern is regular, symmetrical. Derm: Skin is pink, warm & dry. Vital Signs: 11:09 BP 147 / 77 RA Sitting (auto/reg); Pulse 88; Resp 18; Temp 99.1(O); Pulse Ox 95% on jrd R/A; Weight 99.79 kg (R); Height 5 ft. 6 in. (167.64 cm) (R); Pain 10/10; 13:05 BP 131 / 64 LA Sitting (auto/lg); Pulse 81; Resp 22; Temp 98.3(O); Pulse Ox 95% on R/A; ar3 Pain 0/10; 11:09 Body Mass Index 35.51 (99.79 kg, 167.64 cm) [facility] Vitals: 11:09 Log In Time: December 12, 2016 at 10:[address] [facility] ED Course: 11:09 Patient visited by Shyam Kraft PCA. jrd 11:09 Other - Complete Info On Cds is Private Physician. jrd 11:09 Patient moved to Waiting jrd 11:11 Patient visited by Shyam Kraft PCA. jrd 11:11 Patient moved to Pre RCE jrd 11:21 Triage Initiated hs1 11:26 Patient moved to Triage 1 hs1 11:33 Saul Fontaine PA-C is PHCP. ar2 11:33 Ad Dey MD is Attending Physician. ar2 11:33 Patient visited by Saul Fontaine PA-C. ar2 11:43 Patient moved to TR1 ar3 12:06 Patient moved to Ultrasound ar3 12:11 Patient moved to TR1 ar3 12:21 Patient moved to PD2 / ar3 12:25 Patient visited by Andrade Beltre RN. ml6 12:52 [facility] is Referral Physician. ar2 12:58 EXTREMITY NON VASCUL LIMITED Returned. EDMS 13:01 The patient / caregiver is instructed regarding the plan of care and ED course. js13 13:01 No IV's were initiated during this patient's visit. No procedures done that require js13 assistance. Wound care to cyst located on right gluteus riki was dressed with 4X4s. 13:03 Wound Culture & GS - All Other Sources Sent. ar3 13:05 Patient visited by Mary Zheng PCA. ar3 13:10 [facility] Payment Agreement was scanned into [employer] and attached to record. lg 12/13 09:45 T-Sheet-- Draft Copy was scanned into [employer] and attached to record. gb 09:45 Radiology Report was scanned into [employer] and attached to record. gb Administered Medications: 12/12 12:26 Drug: Lidocaine 10 ml [lidocaine 10 mg/mL (1 %) injection solution (10 mL)] {Note: ml6 administered by PA.} Route: Infiltration; Order Results: Lab Order: Wound Culture & GS - All Other Sources; SPEC'M 12/12/16 13:04 Test: GRAM STAIN; Value: GRAM STAIN RESULT; Status: F Test: GRAM STAIN; Value: MANY GRAM POSITIVE COCCI; Status: F Test: GRAM STAIN; Value: MODERATE GRAM POSITIVE RODS; Status: F Test: WOUND CULTURE; Value: <EXTERNAL COMMENT eCWMed> FULL REPORT IN LAB NOTES (eCW and Medent).; Status: F Test: WOUND CULTURE; Value: ORGANISM 1: ORGANISM SAME PREVIOUS ISOLATE; Status: F Test: WOUND CULTURE; Value: ORGANISM SAME PREVIOUS ISOLATE; Status: F Test: WOUND CULTURE; Value: QUANTITY OF GROWTH FEW; Status: F Test: WOUND CULTURE; Value: CORYNEBACTERIUM SPECIES; Status: F Test: WOUND CULTURE; Value: Corynebacterium LINE 4 Many species of Coryneform bacteria are part of the; Status: F Test: WOUND CULTURE; Value: Corynebacterium LINE 5 normal [place] of the skin and mucous membranes in; Status: F Test: WOUND CULTURE; Value: Corynebacterium LINE 6 humans. Repeated isolation or a coryneform bacterium; Status: F Test: WOUND CULTURE; Value: Corynebacterium LINE 7 growing in pure culture may require consultation with; Status: F Test: WOUND CULTURE; Value: Corynebacterium LINE 8 an infectious disease specialist. There are currently; Status: F Test: WOUND CULTURE; Value: Corynebacterium LINE 9 no susceptibility standards for these organisms.; Status: F Test: WOUND CULTURE; Value: QUANTITY OF GROWTH FEW; Status: F Test: WOUND CULTURE; Value: SAME AEROBIC ISOLATE; Status: F Test: WOUND CULTURE; Value: QUANTITY OF GROWTH FEW; Status: F Test: WOUND CULTURE; Value: ANAEROBIC COCCI; Status: F Test: WOUND CULTURE; Value: QUANTITY OF GROWTH FEW; Status: F Test: WOUND CULTURE; Value: ACTINOMYCES MEYERI; Status: F Test: WOUND CULTURE; Value: QUANTITY OF GROWTH FEW; Status: F Test: WOUND CULTURE; Value: ORGANISM 2: CORYNEBACTERIUM SPECIES; Status: F Test: WOUND CULTURE; Value: ORGANISM SAME PREVIOUS ISOLATE; Status: F Test: WOUND CULTURE; Value: QUANTITY OF GROWTH FEW; Status: F Test: WOUND CULTURE; Value: CORYNEBACTERIUM SPECIES; Status: F Test: WOUND CULTURE; Value: Corynebacterium LINE 4 Many species of Coryneform bacteria are part of the; Status: F Test: WOUND CULTURE; Value: Corynebacterium LINE 5 normal kh[place] of the skin and mucous membranes in; Status: F Test: WOUND CULTURE; Value: Corynebacterium LINE 6 humans. Repeated isolation or a coryneform bacterium; Status: F Test: WOUND CULTURE; Value: Corynebacterium LINE 7 growing in pure culture may require consultation with; Status: F Test: WOUND CULTURE; Value: Corynebacterium LINE 8 an infectious disease specialist. There are currently; Status: F Test: WOUND CULTURE; Value: Corynebacterium LINE 9 no susceptibility standards for these organisms.; Status: F Test: WOUND CULTURE; Value: QUANTITY OF GROWTH FEW; Status: F Test: WOUND CULTURE; Value: SAME AEROBIC ISOLATE; Status: F Test: WOUND CULTURE; Value: QUANTITY OF GROWTH FEW; Status: F Test: WOUND CULTURE; Value: ANAEROBIC COCCI; Status: F Test: WOUND CULTURE; Value: QUANTITY OF GROWTH FEW; Status: F Test: WOUND CULTURE; Value: ACTINOMYCES MEYERI; Status: F Test: WOUND CULTURE; Value: QUANTITY OF GROWTH FEW; Status: F Test: WOUND CULTURE; Value: ORGANISM 3: SAME AEROBIC ISOLATE; Status: F Test: WOUND CULTURE; Value: ORGANISM SAME PREVIOUS ISOLATE; Status: F Test: WOUND CULTURE; Value: QUANTITY OF GROWTH FEW; Status: F Test: WOUND CULTURE; Value: CORYNEBACTERIUM SPECIES; Status: F Test: WOUND CULTURE; Value: Corynebacterium LINE 4 Many species of Coryneform bacteria are part of the; Status: F Test: WOUND CULTURE; Value: Corynebacterium LINE 5 normal [place] of the skin and mucous membranes in; Status: F Test: WOUND CULTURE; Value: Corynebacterium LINE 6 humans. Repeated isolation or a coryneform bacterium; Status: F Test: WOUND CULTURE; Value: Corynebacterium LINE 7 growing in pure culture may require consultation with; Status: F Test: WOUND CULTURE; Value: Corynebacterium LINE 8 an infectious disease specialist. There are currently; Status: F Test: WOUND CULTURE; Value: Corynebacterium LINE 9 no susceptibility standards for these organisms.; Status: F Test: WOUND CULTURE; Value: QUANTITY OF GROWTH FEW; Status: F Test: WOUND CULTURE; Value: SAME AEROBIC ISOLATE; Status: F Test: WOUND CULTURE; Value: QUANTITY OF GROWTH FEW; Status: F Test: WOUND CULTURE; Value: ANAEROBIC COCCI; Status: F Test: WOUND CULTURE; Value: QUANTITY OF GROWTH FEW; Status: F Test: WOUND CULTURE; Value: ACTINOMYCES MEYERI; Status: F Test: WOUND CULTURE; Value: QUANTITY OF GROWTH FEW; Status: F Test: WOUND CULTURE; Value: ORGANISM 4: ANAEROBIC COCCI; Status: F Test: WOUND CULTURE; Value: ORGANISM SAME PREVIOUS ISOLATE; Status: F Test: WOUND CULTURE; Value: QUANTITY OF GROWTH FEW; Status: F Test: WOUND CULTURE; Value: CORYNEBACTERIUM SPECIES; Status: F Test: WOUND CULTURE; Value: Corynebacterium LINE 4 Many species of Coryneform bacteria are part of the; Status: F Test: WOUND CULTURE; Value: Corynebacterium LINE 5 normal kh[place] of the skin and mucous membranes in; Status: F Test: WOUND CULTURE; Value: Corynebacterium LINE 6 humans. Repeated isolation or a coryneform bacterium; Status: F Test: WOUND CULTURE; Value: Corynebacterium LINE 7 growing in pure culture may require consultation with; Status: F Test: WOUND CULTURE; Value: Corynebacterium LINE 8 an infectious disease specialist. There are currently; Status: F Test: WOUND CULTURE; Value: Corynebacterium LINE 9 no susceptibility standards for these organisms.; Status: F Test: WOUND CULTURE; Value: QUANTITY OF GROWTH FEW; Status: F Test: WOUND CULTURE; Value: SAME AEROBIC ISOLATE; Status: F Test: WOUND CULTURE; Value: QUANTITY OF GROWTH FEW; Status: F Test: WOUND CULTURE; Value: ANAEROBIC COCCI; Status: F Test: WOUND CULTURE; Value: QUANTITY OF GROWTH FEW; Status: F Test: WOUND CULTURE; Value: ACTINOMYCES MEYERI; Status: F Test: WOUND CULTURE; Value: QUANTITY OF GROWTH FEW; Status: F Test: WOUND CULTURE; Value: ORGANISM 5: ACTINOMYCES MEYERI; Status: F Test: WOUND CULTURE; Value: ORGANISM SAME PREVIOUS ISOLATE; Status: F Test: WOUND CULTURE; Value: QUANTITY OF GROWTH FEW; Status: F Test: WOUND CULTURE; Value: CORYNEBACTERIUM SPECIES; Status: F Test: WOUND CULTURE; Value: Corynebacterium LINE 4 Many species of Coryneform bacteria are part of the; Status: F Test: WOUND CULTURE; Value: Corynebacterium LINE 5 normal kh[place] of the skin and mucous membranes in; Status: F Test: WOUND CULTURE; Value: Corynebacterium LINE 6 humans. Repeated isolation or a coryneform bacterium; Status: F Test: WOUND CULTURE; Value: Corynebacterium LINE 7 growing in pure culture may require consultation with; Status: F Test: WOUND CULTURE; Value: Corynebacterium LINE 8 an infectious disease specialist. There are currently; Status: F Test: WOUND CULTURE; Value: Corynebacterium LINE 9 no susceptibility standards for these organisms.; Status: F Test: WOUND CULTURE; Value: QUANTITY OF GROWTH FEW; Status: F Test: WOUND CULTURE; Value: SAME AEROBIC ISOLATE; Status: F Test: WOUND CULTURE; Value: QUANTITY OF GROWTH FEW; Status: F Test: WOUND CULTURE; Value: ANAEROBIC COCCI; Status: F Test: WOUND CULTURE; Value: QUANTITY OF GROWTH FEW; Status: F Test: WOUND CULTURE; Value: ACTINOMYCES MEYERI; Status: F Test: WOUND CULTURE; Value: QUANTITY OF GROWTH FEW; Status: F Radiology Order: EXTREMITY NON VASCUL LIMITED Test: EXTREMITY NON VASCUL LIMITED REASON FOR EXAMINATION: right buttock r/o abscess; RIGHT BUTTOCK ULTRASOUND:; ; Real-time sonographic evaluation of the right buttock soft tissues performed at a; site of swelling and redness. There does appear to be a somewhat complex fluid; collection in these soft tissues measuring 4.4 x 2.1 x 2.8 cm. This may; represent an abscess.; ; ; Signed by; Siddhartha Butler MD 12/12/2016 05:04 P; Outcome: 12:54 Discharge ordered by Provider. ar2 13:01 Discharge Assessment: Patient awake, alert and oriented x 3. No cognitive and/or js13 functional deficits noted. Patient verbalized understanding of disposition instructions. patient administered narcotics - no. The following High Risk Discharge criteria are identified: None. Discharged to home ambulatory. Condition: good Condition: stable. Discharge instructions given to patient, Instructed on discharge instructions, follow up and referral plans. medication usage, wound care, Demonstrated understanding of instructions, medications, Pt was receptive of discharge instructions/ teaching. Prescriptions given X 3, Work note provided to patient. No special radiology studies were completed. Property :Personal belongings accompany Pt. 13:06 Patient left the ED. js13 Addendum: 12/20/2016 16:15 Narrative: Wound culture results reviewed with Ronda Schreiber NP and no change in treatment kcs needed. Signatures: Dispatcher [employer] EDMS Staci Mendez, RN RN kcs Kelli Morrison, Reg Reg gb Vijay Olea, Reg Reg lg Saul Fontaine, PA-C PA-C ar2 Andrade Beltre RN RN ml6 Mary Zheng, CUSTODIAL WORKER CUSTODIAL WORKER ar3 Ammy Epstein RN RN 1 Natalee Zaragoza RN RN js13 Abena, Shyam, CUSTODIAL WORKER CUSTODIAL WORKER jrd Chart Complete MTDD
--- NOTE | 2016-12-20 16:19 | EDDOCDS ---
Physician Documentation [facility] Name: Ashley Monge Age: 56 yrs Sex: Female : 1960 Arrival Date: 12/12/2016 Time: 11:06 Bed PD Private MD: Other - Complete Info On Cds Disposition: 12/12/16 12:54 Discharged to Home/Self Care. Impression: Cutaneous abscess of buttock, Acute bronchitis. - Condition is Stable. - Discharge Instructions: Abscess, Acute Bronchitis, Incision and Drainage, Dressing Change. - Prescriptions for Doxycycline Monohydrate 100 mg Oral Tablet - take 1 tablet by ORAL route every 12 hours for 10 days; 20 tablet. Mucinex 600 mg - take 1 tablet by ORAL route 2 times per day; 30 tablet. benzonatate 200 mg Oral Capsule - take 1 capsule by ORAL route 3 times per day As needed; 30 capsule. - Medication Reconciliation, Local Pharmacy Hours, Work Release Form - 1 day form. - Follow up: [facility]; When: 2 - 3 days; Reason: Recheck today's complaints. Follow up: Emergency Department; When: As needed; Reason: Fever > 102F, Worsening of conditions. - Problem is new. - Symptoms have improved. - Notes: call to make follow up appointment Historical: - Allergies: moxifloxacin; - Home Meds: 1. oxybutynin chloride 5 mg Oral tr24 1 tab once daily 2. Spiriva with HandiHaler 18 mcg Inhl CpDv 1 cap once daily 3. Symbicort 160-4.5 mcg/actuation inhalation HFAA 2 puffs 2 times per day - PMHx: bladder spasm; Emphysema; Ebenezer's Disease; - PSHx: Tubal ligation; Tonsillectomy; Cholecystectomy; - Social history: Smoking status: Patient uses tobacco products, heavy tobacco smoker. No barriers to communication noted, The patient speaks fluent Kosovan, Speaks appropriately for age. - Family history: Not pertinent. - : The pt / caregiver states he / she is not on anticoagulants. Home medication list is obtained from the patient. - Exposure Risk Screening:: None identified. Vital Signs: 12/12 11:09 BP 147 / 77 RA Sitting (auto/reg); Pulse 88; Resp 18; Temp 99.1(O); Pulse Ox 95% on jrd R/A; Weight 99.79 kg / 220 lbs (R); Height 5 ft. 6 in. (167.64 cm) (R); Pain 10/10; 13:05 BP 131 / 64 LA Sitting (auto/lg); Pulse 81; Resp 22; Temp 98.3(O); Pulse Ox 95% on R/A; ar3 Pain 0/10; 11:09 Body Mass Index 35.51 (99.79 kg, 167.64 cm) jrd MDM: 11:46 EXTREMITY NON VASCUL LIMITED Ordered. EDMS 12:20 Financial registration complete. lg 12:20 Lidocaine 10 mg/mL (1 %) 10 ml Infiltration once; to bedside ordered. ar2 13:02 Wound Culture & GS - All Other Sources Ordered. EDMS 13:10 [id number] Payment Agreement was scanned into [employer] and attached to record. lg 12/13 09:45 T-Sheet-- Draft Copy was scanned into [employer] and attached to record. gb 09:45 Radiology Report was scanned into [employer] and attached to record. gb Administered Medications: 12/12 12:26 Drug: Lidocaine 10 ml [lidocaine 10 mg/mL (1 %) injection solution (10 mL)] {Note: ml6 administered by PA.} Route: Infiltration; Signatures: Dispatcher [employer] EDMS Kelli Morrison, Reg Reg Vijay Stone, Reg Reg lg Saul Fontaine, PA-C PA-C ar2 Ammy Epstein RN RN hs1 Natalee Zaragoza RN RN js13 Andrade Beltre RN ml6 The chart was reviewed and I authenticate all verbal orders and agree with the evaluation and treatment provided.Corrections: (The following items were deleted from the chart) 11:46 11:42 Abdomen, limited+US ordered. EDMS EDMS Attachments: 13:10 [facility] Payment Agreement lg 12/13 09:45 T-Sheet-- Draft Copy gb Chart Complete MTDD
--- NOTE | 2016-12-20 16:19 | EDDOCDS ---
Physician Documentation [facility] Name: Ashley Monge Age: 56 yrs Sex: Female : 1960 Arrival Date: 12/12/2016 Time: 11:06 Bed PD Private MD: Other - Complete Info On Cds Disposition: 12/12/16 12:54 Discharged to Home/Self Care. Impression: Cutaneous abscess of buttock, Acute bronchitis. - Condition is Stable. - Discharge Instructions: Abscess, Acute Bronchitis, Incision and Drainage, Dressing Change. - Prescriptions for Doxycycline Monohydrate 100 mg Oral Tablet - take 1 tablet by ORAL route every 12 hours for 10 days; 20 tablet. Mucinex 600 mg - take 1 tablet by ORAL route 2 times per day; 30 tablet. benzonatate 200 mg Oral Capsule - take 1 capsule by ORAL route 3 times per day As needed; 30 capsule. - Medication Reconciliation, Local Pharmacy Hours, Work Release Form - 1 day form. - Follow up: [facility]; When: 2 - 3 days; Reason: Recheck today's complaints. Follow up: Emergency Department; When: As needed; Reason: Fever > 102F, Worsening of conditions. - Problem is new. - Symptoms have improved. - Notes: call to make follow up appointment Historical: - Allergies: moxifloxacin; - Home Meds: 1. oxybutynin chloride 5 mg Oral tr24 1 tab once daily 2. Spiriva with HandiHaler 18 mcg Inhl CpDv 1 cap once daily 3. Symbicort 160-4.5 mcg/actuation inhalation HFAA 2 puffs 2 times per day - PMHx: bladder spasm; Emphysema; Ebenezer's Disease; - PSHx: Tubal ligation; Tonsillectomy; Cholecystectomy; - Social history: Smoking status: Patient uses tobacco products, heavy tobacco smoker. No barriers to communication noted, The patient speaks fluent Cameroonian, Speaks appropriately for age. - Family history: Not pertinent. - : The pt / caregiver states he / she is not on anticoagulants. Home medication list is obtained from the patient. - Exposure Risk Screening:: None identified. Vital Signs: 12/12 11:09 BP 147 / 77 RA Sitting (auto/reg); Pulse 88; Resp 18; Temp 99.1(O); Pulse Ox 95% on jrd R/A; Weight 99.79 kg / 220 lbs (R); Height 5 ft. 6 in. (167.64 cm) (R); Pain 10/10; 13:05 BP 131 / 64 LA Sitting (auto/lg); Pulse 81; Resp 22; Temp 98.3(O); Pulse Ox 95% on R/A; ar3 Pain 0/10; 11:09 Body Mass Index 35.51 (99.79 kg, 167.64 cm) jrd MDM: 11:46 EXTREMITY NON VASCUL LIMITED Ordered. EDMS 12:20 Financial registration complete. lg 12:20 Lidocaine 10 mg/mL (1 %) 10 ml Infiltration once; to bedside ordered. ar2 13:02 Wound Culture & GS - All Other Sources Ordered. EDMS 13:10 [facility] Payment Agreement was scanned into [employer] and attached to record. lg 12/13 09:45 T-Sheet-- Draft Copy was scanned into [employer] and attached to record. gb 09:45 Radiology Report was scanned into [employer] and attached to record. gb Administered Medications: 12/12 12:26 Drug: Lidocaine 10 ml [lidocaine 10 mg/mL (1 %) injection solution (10 mL)] {Note: ml6 administered by PA.} Route: Infiltration; Signatures: Dispatcher [employer] EDMS Kelli Morrison, Reg Reg Vijay Stone, Reg Reg lg Saul Fontaine, PA-C PA-C ar2 Ammy Epstein RN RN hs1 Natalee Zaragoza RN RN js13 Andrade Beltre RN ml6 The chart was reviewed and I authenticate all verbal orders and agree with the evaluation and treatment provided.Corrections: (The following items were deleted from the chart) 11:46 11:42 Abdomen, limited+US ordered. EDMS EDMS Attachments: 13:10 [facility] Payment Agreement lg 12/13 09:45 T-Sheet-- Draft Copy gb Chart Complete MTDD
--- NOTE | 2016-12-20 17:05 | EDDOCDS ---
Physician Documentation [facility] Name: Ashley Monge Age: 56 yrs Sex: Female : 1960 Arrival Date: 12/12/2016 Time: 11:06 Bed PD Private MD: Other - Complete Info On Cds Disposition: 12/12/16 12:54 Discharged to Home/Self Care. Impression: Cutaneous abscess of buttock, Acute bronchitis. - Condition is Stable. - Discharge Instructions: Abscess, Acute Bronchitis, Incision and Drainage, Dressing Change. - Prescriptions for Doxycycline Monohydrate 100 mg Oral Tablet - take 1 tablet by ORAL route every 12 hours for 10 days; 20 tablet. Mucinex 600 mg - take 1 tablet by ORAL route 2 times per day; 30 tablet. benzonatate 200 mg Oral Capsule - take 1 capsule by ORAL route 3 times per day As needed; 30 capsule. - Medication Reconciliation, Local Pharmacy Hours, Work Release Form - 1 day form. - Follow up: [facility]; When: 2 - 3 days; Reason: Recheck today's complaints. Follow up: Emergency Department; When: As needed; Reason: Fever > 102F, Worsening of conditions. - Problem is new. - Symptoms have improved. - Notes: call to make follow up appointment Historical: - Allergies: moxifloxacin; - Home Meds: 1. oxybutynin chloride 5 mg Oral tr24 1 tab once daily 2. Spiriva with HandiHaler 18 mcg Inhl CpDv 1 cap once daily 3. Symbicort 160-4.5 mcg/actuation inhalation HFAA 2 puffs 2 times per day - PMHx: bladder spasm; Emphysema; Ebenezer's Disease; - PSHx: Tubal ligation; Tonsillectomy; Cholecystectomy; - Social history: Smoking status: Patient uses tobacco products, heavy tobacco smoker. No barriers to communication noted, The patient speaks fluent Gabonese, Speaks appropriately for age. - Family history: Not pertinent. - : The pt / caregiver states he / she is not on anticoagulants. Home medication list is obtained from the patient. - Exposure Risk Screening:: None identified. Vital Signs: 12/12 11:09 BP 147 / 77 RA Sitting (auto/reg); Pulse 88; Resp 18; Temp 99.1(O); Pulse Ox 95% on jrd R/A; Weight 99.79 kg / 220 lbs (R); Height 5 ft. 6 in. (167.64 cm) (R); Pain 10/10; 13:05 BP 131 / 64 LA Sitting (auto/lg); Pulse 81; Resp 22; Temp 98.3(O); Pulse Ox 95% on R/A; ar3 Pain 0/10; 11:09 Body Mass Index 35.51 (99.79 kg, 167.64 cm) jrd MDM: 11:46 EXTREMITY NON VASCUL LIMITED Ordered. EDMS 12:20 Financial registration complete. lg 12:20 Lidocaine 10 mg/mL (1 %) 10 ml Infiltration once; to bedside ordered. ar2 13:02 Wound Culture & GS - All Other Sources Ordered. EDMS 13:10 [place] [place] was scanned into [employer] and attached to record. lg 12/13 09:45 T-Sheet-- Draft Copy was scanned into [employer] and attached to record. gb 09:45 Radiology Report was scanned into [employer] and attached to record. gb Administered Medications: 12/12 12:26 Drug: Lidocaine 10 ml [lidocaine 10 mg/mL (1 %) injection solution (10 mL)] {Note: ml6 administered by PA.} Route: Infiltration; Signatures: Dispatcher [employer] EDMS Kelli Morrison, Reg Reg Vijay Stone, Reg Reg lg Saul Fontaine, PA-C PA-C ar2 Ammy Epstein RN RN hs1 Natalee Zaragoza RN RN js13 Andrade Beltre RN ml6 The chart was reviewed and I authenticate all verbal orders and agree with the evaluation and treatment provided.Corrections: (The following items were deleted from the chart) 11:46 11:42 Abdomen, limited+US ordered. EDMS EDMS Attachments: 13:10 [facility] [place] lg 12/13 09:45 T-Sheet-- Draft Copy gb Chart Complete MTDD
--- NOTE | 2016-12-20 17:05 | EDDOCDS ---
Nurse's Notes [facility] Name: Ashley Monge Age: 56 yrs Sex: Female : 1960 Arrival Date: 12/12/2016 Time: 11:06 Bed PD Private MD: Other - Complete Info On Cds Diagnosis: Cutaneous abscess of buttock;Acute bronchitis Presentation: 12/12 11:18 Presenting complaint: Patient states: I have bronchitis and a sinus infection and [facility] have the [facility] that is going around. I am here because I have a giant boil on my butt that they couldn't do anything about. Patient states trying to drain it at home and unsuccessful. Adult Sepsis Screening: The patient does not have new or worsening altered mentation. Patient's respiratory rate is less than 22. Systolic blood pressure is greater than 100. Patient has a qSOFA score of 0- Negative Sepsis Screen. Suicide/Homicide risk assessment- the patient denies having any suicidal and/or homicidal ideations and does not present with any other emotional, behavioral or mental health complaints. Status: Patient is not a welfare service aide or dependent. Transition of care: patient was not received from another setting of care. 11:18 Acuity: LUÍS Level 4 hs1 11:18 Method Of Arrival: Walkin/Carried/Asstd hs1 Triage Assessment: 11:25 General: Appears uncomfortable, Behavior is appropriate for age, cooperative. Pain: hs1 Location: buttocks Pain currently is 10 out of 10 on a pain scale. HIV screening NA for this visit Offered previously. Neurological: No deficits noted. Respiratory: Airway is patent Respiratory effort is even, unlabored, Respiratory pattern is regular, symmetrical. Derm: Skin is pink, warm & dry. normal. Historical: - Allergies: moxifloxacin; - Home Meds: 1. oxybutynin chloride 5 mg Oral tr24 1 tab once daily 2. Spiriva with HandiHaler 18 mcg Inhl CpDv 1 cap once daily 3. Symbicort 160-4.5 mcg/actuation inhalation HFAA 2 puffs 2 times per day - PMHx: bladder spasm; Emphysema; Ebenezer's Disease; - PSHx: Tubal ligation; Tonsillectomy; Cholecystectomy; - Social history: Smoking status: Patient uses tobacco products, heavy tobacco smoker. No barriers to communication noted, The patient speaks fluent Burkinan, Speaks appropriately for age. - Family history: Not pertinent. - : The pt / caregiver states he / she is not on anticoagulants. Home medication list is obtained from the patient. - Exposure Risk Screening:: None identified. Screenin:01 Screening information is obtained from the patient. Fall risk: No risks identified. js13 Assistance ADL's: requires no assistance with activities of daily living. Abuse/DV Screen: The patient / caregiver reports he/she is: not in a situation that causes fear, pain or injury. Nutritional screening: No deficits noted. Advance Directives: There is no active DNR order. home support is adequate. Assessment: 13:01 General: Appears in no apparent distress, Behavior is appropriate for age, cooperative. js13 Pain: Location: buttocks. Neurological: Level of Consciousness is awake, alert. Respiratory: Airway is patent Respiratory effort is even, unlabored, Respiratory pattern is regular, symmetrical. Derm: Skin is pink, warm & dry. Vital Signs: 11:09 BP 147 / 77 RA Sitting (auto/reg); Pulse 88; Resp 18; Temp 99.1(O); Pulse Ox 95% on jrd R/A; Weight 99.79 kg (R); Height 5 ft. 6 in. (167.64 cm) (R); Pain 10/10; 13:05 BP 131 / 64 LA Sitting (auto/lg); Pulse 81; Resp 22; Temp 98.3(O); Pulse Ox 95% on R/A; ar3 Pain 0/10; 11:09 Body Mass Index 35.51 (99.79 kg, 167.64 cm) [facility] Vitals: 11:09 Log In Time: December 12, 2016 at 10:55. [facility] ED Course: 11:09 Patient visited by Shyam Kraft PCA. jrd 11:09 Other - Complete Info On Cds is Private Physician. jrd 11:09 Patient moved to Waiting jrd 11:11 Patient visited by Shyam Kraft PCA. jrd 11:11 Patient moved to Pre RCE jrd 11:21 Triage Initiated hs1 11:26 Patient moved to Triage 1 hs1 11:33 Saul Fontaine PA-C is PHCP. ar2 11:33 Ad Dey MD is Attending Physician. ar2 11:33 Patient visited by Saul Fontaine PA-C. ar2 11:43 Patient moved to TR1 ar3 12:06 Patient moved to Ultrasound ar3 12:11 Patient moved to TR1 ar3 12:21 Patient moved to PD2 / ar3 12:25 Patient visited by Andrade Beltre RN. ml6 12:52 [facility] is Referral Physician. ar2 12:58 EXTREMITY NON VASCUL LIMITED Returned. EDMS 13:01 The patient / caregiver is instructed regarding the plan of care and ED course. js13 13:01 No IV's were initiated during this patient's visit. No procedures done that require js13 assistance. Wound care to cyst located on right gluteus riki was dressed with 4X4s. 13:03 Wound Culture & GS - All Other Sources Sent. ar3 13:05 Patient visited by Mary Zheng PCA. ar3 13:10 [facility] Payment Agreement was scanned into [employer] and attached to record. lg 12/13 09:45 T-Sheet-- Draft Copy was scanned into [employer] and attached to record. gb 09:45 Radiology Report was scanned into [employer] and attached to record. gb Administered Medications: 12/12 12:26 Drug: Lidocaine 10 ml [lidocaine 10 mg/mL (1 %) injection solution (10 mL)] {Note: ml6 administered by PA.} Route: Infiltration; Order Results: Lab Order: Wound Culture & GS - All Other Sources; SPEC'M 12/12/16 13:04 Test: GRAM STAIN; Value: GRAM STAIN RESULT; Status: F Test: GRAM STAIN; Value: MANY GRAM POSITIVE COCCI; Status: F Test: GRAM STAIN; Value: MODERATE GRAM POSITIVE RODS; Status: F Test: WOUND CULTURE; Value: <EXTERNAL COMMENT eCWMed> FULL REPORT IN LAB NOTES (eCW and Medent).; Status: F Test: WOUND CULTURE; Value: ORGANISM 1: ORGANISM SAME PREVIOUS ISOLATE; Status: F Test: WOUND CULTURE; Value: ORGANISM SAME PREVIOUS ISOLATE; Status: F Test: WOUND CULTURE; Value: QUANTITY OF GROWTH FEW; Status: F Test: WOUND CULTURE; Value: CORYNEBACTERIUM SPECIES; Status: F Test: WOUND CULTURE; Value: Corynebacterium LINE 4 Many species of Coryneform bacteria are part of the; Status: F Test: WOUND CULTURE; Value: Corynebacterium LINE 5 normal khur[place] of the skin and mucous membranes in; Status: F Test: WOUND CULTURE; Value: Corynebacterium LINE 6 humans. Repeated isolation or a coryneform bacterium; Status: F Test: WOUND CULTURE; Value: Corynebacterium LINE 7 growing in pure culture may require consultation with; Status: F Test: WOUND CULTURE; Value: Corynebacterium LINE 8 an infectious disease specialist. There are currently; Status: F Test: WOUND CULTURE; Value: Corynebacterium LINE 9 no susceptibility standards for these organisms.; Status: F Test: WOUND CULTURE; Value: QUANTITY OF GROWTH FEW; Status: F Test: WOUND CULTURE; Value: SAME AEROBIC ISOLATE; Status: F Test: WOUND CULTURE; Value: QUANTITY OF GROWTH FEW; Status: F Test: WOUND CULTURE; Value: ANAEROBIC COCCI; Status: F Test: WOUND CULTURE; Value: QUANTITY OF GROWTH FEW; Status: F Test: WOUND CULTURE; Value: ACTINOMYCES MEYERI; Status: F Test: WOUND CULTURE; Value: QUANTITY OF GROWTH FEW; Status: F Test: WOUND CULTURE; Value: ORGANISM 2: CORYNEBACTERIUM SPECIES; Status: F Test: WOUND CULTURE; Value: ORGANISM SAME PREVIOUS ISOLATE; Status: F Test: WOUND CULTURE; Value: QUANTITY OF GROWTH FEW; Status: F Test: WOUND CULTURE; Value: CORYNEBACTERIUM SPECIES; Status: F Test: WOUND CULTURE; Value: Corynebacterium LINE 4 Many species of Coryneform bacteria are part of the; Status: F Test: WOUND CULTURE; Value: Corynebacterium LINE 5 normal kh[place] of the skin and mucous membranes in; Status: F Test: WOUND CULTURE; Value: Corynebacterium LINE 6 humans. Repeated isolation or a coryneform bacterium; Status: F Test: WOUND CULTURE; Value: Corynebacterium LINE 7 growing in pure culture may require consultation with; Status: F Test: WOUND CULTURE; Value: Corynebacterium LINE 8 an infectious disease specialist. There are currently; Status: F Test: WOUND CULTURE; Value: Corynebacterium LINE 9 no susceptibility standards for these organisms.; Status: F Test: WOUND CULTURE; Value: QUANTITY OF GROWTH FEW; Status: F Test: WOUND CULTURE; Value: SAME AEROBIC ISOLATE; Status: F Test: WOUND CULTURE; Value: QUANTITY OF GROWTH FEW; Status: F Test: WOUND CULTURE; Value: ANAEROBIC COCCI; Status: F Test: WOUND CULTURE; Value: QUANTITY OF GROWTH FEW; Status: F Test: WOUND CULTURE; Value: ACTINOMYCES MEYERI; Status: F Test: WOUND CULTURE; Value: QUANTITY OF GROWTH FEW; Status: F Test: WOUND CULTURE; Value: ORGANISM 3: SAME AEROBIC ISOLATE; Status: F Test: WOUND CULTURE; Value: ORGANISM SAME PREVIOUS ISOLATE; Status: F Test: WOUND CULTURE; Value: QUANTITY OF GROWTH FEW; Status: F Test: WOUND CULTURE; Value: CORYNEBACTERIUM SPECIES; Status: F Test: WOUND CULTURE; Value: Corynebacterium LINE 4 Many species of Coryneform bacteria are part of the; Status: F Test: WOUND CULTURE; Value: Corynebacterium LINE 5 normal kh[place] of the skin and mucous membranes in; Status: F Test: WOUND CULTURE; Value: Corynebacterium LINE 6 humans. Repeated isolation or a coryneform bacterium; Status: F Test: WOUND CULTURE; Value: Corynebacterium LINE 7 growing in pure culture may require consultation with; Status: F Test: WOUND CULTURE; Value: Corynebacterium LINE 8 an infectious disease specialist. There are currently; Status: F Test: WOUND CULTURE; Value: Corynebacterium LINE 9 no susceptibility standards for these organisms.; Status: F Test: WOUND CULTURE; Value: QUANTITY OF GROWTH FEW; Status: F Test: WOUND CULTURE; Value: SAME AEROBIC ISOLATE; Status: F Test: WOUND CULTURE; Value: QUANTITY OF GROWTH FEW; Status: F Test: WOUND CULTURE; Value: ANAEROBIC COCCI; Status: F Test: WOUND CULTURE; Value: QUANTITY OF GROWTH FEW; Status: F Test: WOUND CULTURE; Value: ACTINOMYCES MEYERI; Status: F Test: WOUND CULTURE; Value: QUANTITY OF GROWTH FEW; Status: F Test: WOUND CULTURE; Value: ORGANISM 4: ANAEROBIC COCCI; Status: F Test: WOUND CULTURE; Value: ORGANISM SAME PREVIOUS ISOLATE; Status: F Test: WOUND CULTURE; Value: QUANTITY OF GROWTH FEW; Status: F Test: WOUND CULTURE; Value: CORYNEBACTERIUM SPECIES; Status: F Test: WOUND CULTURE; Value: Corynebacterium LINE 4 Many species of Coryneform bacteria are part of the; Status: F Test: WOUND CULTURE; Value: Corynebacterium LINE 5 normal kh[place] of the skin and mucous membranes in; Status: F Test: WOUND CULTURE; Value: Corynebacterium LINE 6 humans. Repeated isolation or a coryneform bacterium; Status: F Test: WOUND CULTURE; Value: Corynebacterium LINE 7 growing in pure culture may require consultation with; Status: F Test: WOUND CULTURE; Value: Corynebacterium LINE 8 an infectious disease specialist. There are currently; Status: F Test: WOUND CULTURE; Value: Corynebacterium LINE 9 no susceptibility standards for these organisms.; Status: F Test: WOUND CULTURE; Value: QUANTITY OF GROWTH FEW; Status: F Test: WOUND CULTURE; Value: SAME AEROBIC ISOLATE; Status: F Test: WOUND CULTURE; Value: QUANTITY OF GROWTH FEW; Status: F Test: WOUND CULTURE; Value: ANAEROBIC COCCI; Status: F Test: WOUND CULTURE; Value: QUANTITY OF GROWTH FEW; Status: F Test: WOUND CULTURE; Value: ACTINOMYCES MEYERI; Status: F Test: WOUND CULTURE; Value: QUANTITY OF GROWTH FEW; Status: F Test: WOUND CULTURE; Value: ORGANISM 5: ACTINOMYCES MEYERI; Status: F Test: WOUND CULTURE; Value: ORGANISM SAME PREVIOUS ISOLATE; Status: F Test: WOUND CULTURE; Value: QUANTITY OF GROWTH FEW; Status: F Test: WOUND CULTURE; Value: CORYNEBACTERIUM SPECIES; Status: F Test: WOUND CULTURE; Value: Corynebacterium LINE 4 Many species of Coryneform bacteria are part of the; Status: F Test: WOUND CULTURE; Value: Corynebacterium LINE 5 normal kh[place] of the skin and mucous membranes in; Status: F Test: WOUND CULTURE; Value: Corynebacterium LINE 6 humans. Repeated isolation or a coryneform bacterium; Status: F Test: WOUND CULTURE; Value: Corynebacterium LINE 7 growing in pure culture may require consultation with; Status: F Test: WOUND CULTURE; Value: Corynebacterium LINE 8 an infectious disease specialist. There are currently; Status: F Test: WOUND CULTURE; Value: Corynebacterium LINE 9 no susceptibility standards for these organisms.; Status: F Test: WOUND CULTURE; Value: QUANTITY OF GROWTH FEW; Status: F Test: WOUND CULTURE; Value: SAME AEROBIC ISOLATE; Status: F Test: WOUND CULTURE; Value: QUANTITY OF GROWTH FEW; Status: F Test: WOUND CULTURE; Value: ANAEROBIC COCCI; Status: F Test: WOUND CULTURE; Value: QUANTITY OF GROWTH FEW; Status: F Test: WOUND CULTURE; Value: ACTINOMYCES MEYERI; Status: F Test: WOUND CULTURE; Value: QUANTITY OF GROWTH FEW; Status: F Radiology Order: EXTREMITY NON VASCUL LIMITED Test: EXTREMITY NON VASCUL LIMITED REASON FOR EXAMINATION: right buttock r/o abscess; RIGHT BUTTOCK ULTRASOUND:; ; Real-time sonographic evaluation of the right buttock soft tissues performed at a; site of swelling and redness. There does appear to be a somewhat complex fluid; collection in these soft tissues measuring 4.4 x 2.1 x 2.8 cm. This may; represent an abscess.; ; ; Signed by; Siddhartha Butler MD 12/12/2016 05:04 P; Outcome: 12:54 Discharge ordered by Provider. ar2 13:01 Discharge Assessment: Patient awake, alert and oriented x 3. No cognitive and/or js13 functional deficits noted. Patient verbalized understanding of disposition instructions. patient administered narcotics - no. The following High Risk Discharge criteria are identified: None. Discharged to home ambulatory. Condition: good Condition: stable. Discharge instructions given to patient, Instructed on discharge instructions, follow up and referral plans. medication usage, wound care, Demonstrated understanding of instructions, medications, Pt was receptive of discharge instructions/ teaching. Prescriptions given X 3, Work note provided to patient. No special radiology studies were completed. Property :Personal belongings accompany Pt. 13:06 Patient left the ED. js13 Addendum: 12/20/2016 16:15 Narrative: Wound culture results reviewed with Ronda Schreiber NP and no change in treatment kcs needed. Signatures: Dispatcher [employer] EDMS Staci Mendez, RN RN kcs Kelli Morrison, Reg Reg gb Vijay Olea, Reg Reg lg Saul Fontaine, PA-C PA-C ar2 Andrade Beltre RN RN ml6 Mary Zheng, PACS SPECIALIST PACS SPECIALIST ar3 Ammy Epstein RN RN 1 Natalee Zaragoza RN RN js13 Abena, Shyam, PACS SPECIALIST PACS SPECIALIST jrd Chart Complete MTDD
--- NOTE | 2016-12-20 17:05 | EDDOCDS ---
Physician Documentation [facility] Name: Ashley Monge Age: 56 yrs Sex: Female : 1960 Arrival Date: 12/12/2016 Time: 11:06 Bed PD Private MD: Other - Complete Info On Cds Disposition: 12/12/16 12:54 Discharged to Home/Self Care. Impression: Cutaneous abscess of buttock, Acute bronchitis. - Condition is Stable. - Discharge Instructions: Abscess, Acute Bronchitis, Incision and Drainage, Dressing Change. - Prescriptions for Doxycycline Monohydrate 100 mg Oral Tablet - take 1 tablet by ORAL route every 12 hours for 10 days; 20 tablet. Mucinex 600 mg - take 1 tablet by ORAL route 2 times per day; 30 tablet. benzonatate 200 mg Oral Capsule - take 1 capsule by ORAL route 3 times per day As needed; 30 capsule. - Medication Reconciliation, Local Pharmacy Hours, Work Release Form - 1 day form. - Follow up: [facility]; When: 2 - 3 days; Reason: Recheck today's complaints. Follow up: Emergency Department; When: As needed; Reason: Fever > 102F, Worsening of conditions. - Problem is new. - Symptoms have improved. - Notes: call to make follow up appointment Historical: - Allergies: moxifloxacin; - Home Meds: 1. oxybutynin chloride 5 mg Oral tr24 1 tab once daily 2. Spiriva with HandiHaler 18 mcg Inhl CpDv 1 cap once daily 3. Symbicort 160-4.5 mcg/actuation inhalation HFAA 2 puffs 2 times per day - PMHx: bladder spasm; Emphysema; Ebenezer's Disease; - PSHx: Tubal ligation; Tonsillectomy; Cholecystectomy; - Social history: Smoking status: Patient uses tobacco products, heavy tobacco smoker. No barriers to communication noted, The patient speaks fluent Kenyan, Speaks appropriately for age. - Family history: Not pertinent. - : The pt / caregiver states he / she is not on anticoagulants. Home medication list is obtained from the patient. - Exposure Risk Screening:: None identified. Vital Signs: 12/12 11:09 BP 147 / 77 RA Sitting (auto/reg); Pulse 88; Resp 18; Temp 99.1(O); Pulse Ox 95% on jrd R/A; Weight 99.79 kg / 220 lbs (R); Height 5 ft. 6 in. (167.64 cm) (R); Pain 10/10; 13:05 BP 131 / 64 LA Sitting (auto/lg); Pulse 81; Resp 22; Temp 98.3(O); Pulse Ox 95% on R/A; ar3 Pain 0/10; 11:09 Body Mass Index 35.51 (99.79 kg, 167.64 cm) jrd MDM: 11:46 EXTREMITY NON VASCUL LIMITED Ordered. EDMS 12:20 Financial registration complete. lg 12:20 Lidocaine 10 mg/mL (1 %) 10 ml Infiltration once; to bedside ordered. ar2 13:02 Wound Culture & GS - All Other Sources Ordered. EDMS 13:[address] [facility] [place] was scanned into [employer] and attached to record. lg 12/13 09:45 T-Sheet-- Draft Copy was scanned into [employer] and attached to record. gb 09:45 Radiology Report was scanned into [employer] and attached to record. gb Administered Medications: 12/12 12:26 Drug: Lidocaine 10 ml [lidocaine 10 mg/mL (1 %) injection solution (10 mL)] {Note: ml6 administered by PA.} Route: Infiltration; Signatures: Dispatcher [employer] EDMS Kelli Morrison, Reg Reg Vijay Stone, Reg Reg lg Saul Fontaine, PA-C PA-C ar2 Ammy Epstein RN RN hs1 Natalee Zaragoza RN RN js13 Andrade Beltre RN ml6 The chart was reviewed and I authenticate all verbal orders and agree with the evaluation and treatment provided.Corrections: (The following items were deleted from the chart) 11:46 11:42 Abdomen, limited+US ordered. EDMS EDMS Attachments: 13:10 [facility] [place] lg 12/13 09:45 T-Sheet-- Draft Copy gb Chart Complete MTDD
== END 2016-12-12 13:06 | disposition home or self-care (01) ==
LOC: M ED 11:06
DX: J20.9 Acute bronchitis, unspecified (principal); L02.31 Cutaneous abscess of buttock; N32.89 Other specified disorders of bladder; J43.9 Emphysema, unspecified; E06.3 Autoimmune thyroiditis; Z90.49 Acquired absence of other specified parts of digestive tract; F17.200 Nicotine dependence, unspecified, uncomplicated; Z79.899 Other long term (current) drug therapy; Z88.1 Allergy status to other antibiotic agents